=== PATIENT | female | born 1995 | race African-American/Black ===

== ENCOUNTER 2016-12-27 17:48 | Emergency (ER) | payer OTHER ==
[~2016-12-27] VITALS: Ht 167.6 cm; Wt 67.9 kg
[2016-12-27 18:00] VITALS: TEMP 36.7; Ht 167.6 cm; Wt 67.9 kg
[2016-12-27] MEDS ORDERED: ACETAMINOPHEN 500 MG TAB PO STA (18:12)
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
[2016-12-27 18:49] VITALS: BP 119/75; PULSE 74; O2SAT 100
== END 2016-12-27 18:51 | disposition home or self-care (01) ==
LOC: C.EDB 17:48 → C.EDD 18:51
DX: G44.319 Acute post-traumatic headache, not intractable (principal); V89.2XXA Person injured in unspecified motor-vehicle accident, traffic, initial encounter

== ENCOUNTER 2017-07-31 21:50 | Emergency (ER) | payer OTHER ==
[~2017-07-31] VITALS: Ht 167.6 cm; Wt 69.3 kg
[2017-07-31 21:55] VITALS: TEMP 36.5; Ht 167.6 cm; Wt 69.3 kg
[2017-07-31 22:55] LABS: URINE APPEARANCE CLOUDY (CLEAR); URINE BILIRUBIN NEG (NEG); URINE COLOR YELLOW; URINE NITRITE NEG (NEG); URINE PH 5.5 (4.5-7.5); URINE SPECIFIC GRAVITY 1.028 (1.000-1.030); UROBILINOGEN NEG (NEG)
[2017-07-31 23:12] LABS: MANUAL MICROSCOPIC REQUIRED? NO; REVIEW REQ? YES
[2017-07-31 23:41] LABS: URINE MUCUS PRESENT (NONE PRSENT)
[2017-07-31 23:51] LABS: URINE EPITHELIAL CELL AUTO >30 /lpf (0-5)
--- NOTE | 2017-08-01 00:12 | EMERGENCY ROOM VISIT NOTE ---
History First contact with patient: 21:54 Chief Complaint: VAGINAL DISCHARGE Stated Complaint: UTI History of Present Illness The patient is a 21 year old female who presents to the Emergency Room with complaints of vaginal itching and burning for the past 3 days. Patient has had yeast infections and symptoms feel similar. Patient denies risk for STIs. She was at urgent care yesterday and was told to take Monistat. Cultures are pending. She had a pelvic exam done then. Patient complains of clear white discharge. Patient denies abdominal pain, back pain, rash, urinary symptoms, fever, chills. Review of Systems See HPI for pertinent positives & negatives. A total of 10 systems reviewed and were otherwise negative. Past Medical/Surgical History none Social History Smoking Status: Former Smoker Alcohol Use: none Drug Use: none Marital Status: single Housing Status: lives with family Occupation Status: employed, [employer] student Current/Historical Medications No Active Prescriptions or Reported Meds Physical Exam Vital Signs Date Time Temp Pulse Resp B/P (MAP) Pulse Ox O2 Delivery O2 Flow Rate FiO2 07/31/17 21:55 36.5 69 20 119/74 100 Room Air Physical Exam VITALS: Vitals are noted on the nurse's note and reviewed by myself. Vital signs stable. GENERAL: Pleasant female, in no acute distress, nondiaphoretic, well-developed well-nourished. SKIN: Capillary reflex less than 2 seconds. HEENT: Normocephalic. PERRLA. EOMI. Nares patent. Mucous membranes moist. Neck is supple without nuchal rigidity. HEART: Regular rate and rhythm without murmurs gallops or rubs. LUNGS: Clear to auscultation bilaterally without wheezes, rales or rhonchi. No retractions or accessory muscle use. ABDOMEN: Positive bowel sounds x 4. Normal tympanic percussion. Soft, nontender, without masses or organomegaly. Dinero sign negative. No guarding or rebound tenderness. No CVA tenderness exam: Normal external female genitalia, MUSCULOSKELETAL: No gross musculoskeletal defects. NEURO: Patient was alert and oriented to person place and time. Normal sensation to light and sharp touch. No focal neurological deficits. Medical Decision & Procedures Laboratory Results Test 07/31/17 22:10 07/31/17 22:20 Urine Color YELLOW Urine Appearance CLOUDY (CLEAR) Urine pH 5.5 (4.5-7.5) Urine Specific [place] 1.028 (1.000-1.030) Urine Protein NEG (NEG) Urine Glucose (UA) NEG (NEG) Urine Ketones NEG (NEG) Urine Occult Blood NEG (NEG) Urine Nitrite NEG (NEG) Urine Bilirubin NEG (NEG) Urine Urobilinogen NEG (NEG) Urine Leukocyte Esterase LARGE (NEG) Urine WBC (Auto) >30 /hpf (0-5) Urine RBC (Auto) 0-4 /hpf (0-4) Urine Hyaline Casts (Auto) 0 /lpf (0-5) Urine Epithelial Cells (Auto) >30 /lpf (0-5) Urine Bacteria (Auto) 2+ (NEG) Urine Mucus PRESENT (NONE PRSENT) Urine Yeast (Auto) PRESENT (NONE PRSENT) Urine Test NEG (NEG) ED Course Prior records reviewed and summarized as above. Triage Nursing notes reviewed. The patient's history was concerning for vaginal itching and discharge Differential diagnosis: Etiologies such as cellulitis, abscess, STI, yeast infection, bacterial vaginitis, UTI, , as well as others were entertained.. Physical examination: As above ER treatment provided: BD and diflucan On reassessment the patient felt better. Diagnostics interpreted by me: The labs revealed UA concerning for infection and sent for culture yeast on gram stain. negative for clue cells This appears to be UTI and yeast infection. She is advised to take medications as directed.Patient did not have acute abdomen on exam. She is well-appearing. She is afebrile and nontoxic. Negative urine. Negative hCG. By the evaluation outlined above emergent etiologies such as abscess, vaginosis as well as others were deemed relatively unlikely. The pt informed about the findings as listed above. All questions were answered and pleased with the treatment. Return instructions were outlined and the patient was discharged in stable condition. Outpatient prescription management: Bactrim Referral: The patient was referred back to [facility]/ primary care physician for follow-up in 2 to 3 days for a recheck of the current condition. Medical Decision As above Medication Reconcilliation Current Medication List: was personally reviewed by me Blood Pressure Screening Patient's blood pressure: Normal blood pressure Impression Primary Impression: UTI (urinary tract infection) Additional Impression: Vaginal candidiasis Departure Information Dispostion Home / Self-Care Condition GOOD Prescriptions No Active Prescriptions or Reported Meds Referrals No Doctor, Assigned (PCP) Patient Instructions My [facility] Additional Instructions Trimethoprim-Sulfamethoxazole(Bactrim DS): Take one pill twice daily for 5 days for your urine infection. All antibiotics can cause diarrhea. If this occurs and you feel worse or it does not resolve in 1-2 days follow up with your doctor or return to the Emergency Department as this could be signs of serious underlying problems. Any medication can cause an allergic reaction, stop the pills immediately and return to the ER for rash, hives, breathing difficulties, or swelling. Take the Diflucan after you finish the antibiotics. Ibuprofen(Motrin, Advil) may be used for fever or pain. Use 600mg every six hours as needed. Take with food. Avoid using more than 2400mg in a 24 hour period. Do not use 2400mg per day for more than three consecutive days without physician direction. Prolonged inappropriate use can lead to stomach upset or ulcers. (AND/OR) Acetaminophen(Tylenol) may be used for fever or pain. Use 1000mg every six hours as needed. Avoid using more than 3000mg in a 24 hour period. Rest and drink plenty of fluids as tolerated. Slow sips of water or sports drinks are recommended instead of large amounts all at once. Continue current medications. Return to the ER immediately for worsening or persistent abdominal/back pain, vomiting, fevers, worsening of your condition, or as needed. Follow up with your primary physician/[facility] within 2-3 days for a recheck of the current condition. Problem Qualifiers Primary Impression: UTI (urinary tract infection) Urinary tract infection type: acute cystitis Hematuria presence: without hematuria Qualified Codes: N30.00 - Acute cystitis without hematuria
[2017-08-01] MEDS ORDERED: SULF800T23 PO (00:13)
[2017-08-01] MEDS ORDERED: SEPTRA DS HOME PACK 1 EA VIAL PO ONE (00:15)
[2017-08-01] MEDS ORDERED: FLUCONAZOLE 50 MG TAB PO ONE (00:15)
[2017-08-01] MEDS ORDERED: FLUC150T PO (00:16)
[2017-08-01 00:24] VITALS: BP 121/64; PULSE 76; O2SAT 100
[2017-08-03 01:16] LABS: CHLAMYDIA TRACH RNA*** DETECTED (NOT DETECTED); GC (NEIS GONORRHOEAE)RNA** NOT DETECTED (NOT DETECTED)
== END 2017-08-01 00:28 | disposition home or self-care (01) ==
LOC: C.EDB 21:51 → C.EDA 08-01 00:28
DX: N30.00 Acute cystitis without hematuria (principal); B37.3 Candidiasis of vulva and vagina; Z87.891 Personal history of nicotine dependence